=== PATIENT | female | born 1935 ===

== ENCOUNTER 2017-04-10 17:48 | Inpatient (IN) | payer MEDICARE ==
[~2017-04-10] VITALS: Ht 157.5 cm; Wt 50.8 kg
--- NOTE | 2017-04-10 18:00 | NUR ---
PT HIGH RISK OF AWOL. SECURITY AT BEDSIDE.
--- NOTE | 2017-04-10 18:34 | NUR ---
Note ashiaone in [facility] - 04/10/17 at 1838 by ROSSY PER PT TRANSFER PAPERWORK FROM [facility]. PT IS NOT ON MEDICATION AT HOME. Addendum: 04/10/17 at 1838 by MARY ALICESO Amendment ashiaone in [facility] - 04/10/17 at 183 by MARY ALICESO PT ALSO DENEIS ATAKING ANY MEDICATION AT HOME
[2017-04-10] MEDS ORDERED: QUET25TA PO (18:46)
[2017-04-10] MEDS ORDERED: RISP1TAB27 PO (18:46)
[2017-04-10] MEDS ORDERED: QUET50TA PO (18:46)
--- NOTE | 2017-04-10 19:00 | NUR ---
PT TRANSFERED TO [facility]
[2017-04-10 20:02] VITALS: BP 154/92
[2017-04-10] MEDS ORDERED: TEMAZEPAM 7.5 MG CAPSULE PO PRN (20:15)
[2017-04-10] MEDS ORDERED: MAGNESIUM HYDROXIDE 30 ML LIQUID UDC PO PRN (20:15)
[2017-04-10] MEDS ORDERED: ACETAMINOPHEN 325 MG TABLET PO PRN (20:15)
[2017-04-10] MEDS ORDERED: MAG HYDROX/AL HYDROX/SIMETH 30 ML LIQUID UDC PO PRN (20:15)
[2017-04-10] MEDS ORDERED: LORAZEPAM 0.5 MG TABLET PO PRN (20:15)
[2017-04-10] MEDS: DIVALPROEX 125 MG TABLET.DR PO SCH (21:17)
[2017-04-10] MEDS: risperiDONE 0.5 MG TABLET PO SCH (21:17)
--- NOTE | 2017-04-10 22:25 | NUR ---
At approx 1930, admitted 81 year old female to [facility]. with Dx. psychosis. She also has a history of Dementia. She was medically cleared at [facility] where she underwent extensive medical and psychiatric evaluation and was placed on a 5150 hold because of grave disability (On 04/07/17, she presented at their ER stating that her daughter is "stealing from her and poisoning her" and she was eloping from her home without shoes) Her hold starts on 04/10/17 at 1400 and will end on 04/13/17 at 1400. Patient noted anxious and talkative, but cooperative at time of admission. Redirection given and was effective. Patient was also seen and evaluated by the attending Psychiatric and medication were reconciled. Body assessment was done, skin noted dry and intact at this time. Few small brown spots (hyperpigmentation) was noted in upper back. She denies pain or discomfort at this time. patient was advised of unit rules, meals, room, roommates and staff. we will continue to monitor.
--- NOTE | 2017-04-11 06:44 | NUR ---
Patient slept 7.30 hrs through the night. She was noted crying in her bed. She stated, "I want to go home, I miss my home". She was also noted delusional and continue accusing her daughter of taking her new car. Patient was redirected. Patient also took a shower this morning. we will continue to monitor..
[2017-04-11 07:30] VITALS: BP 121/81
[2017-04-11] MEDS: DIVALPROEX 125 MG TABLET.DR PO SCH ×3 (08:32→21:23)
[2017-04-11] MEDS: risperiDONE 0.5 MG TABLET PO SCH ×2 (08:32→21:23)
[2017-04-11 15:32] VITALS: BP 115/70
[2017-04-11 19:59] VITALS: BP 116/68
--- NOTE | 2017-04-12 07:14 | NUR ---
PATIENT SLEPT 5/30HRS THROUGH THE NIGHT. SHE WAS NOTED DELUSIONAL LAST NIGHT. SHE STATED, "I AM LOOKING FOR MY DOG". "WHERE IS MY DOG? HE WAS JUST HERE. PATIENT WAS VERBALLY REDIRECTED.
[2017-04-12 07:30] VITALS: BP 136/80
[2017-04-12] MEDS: DIVALPROEX 125 MG TABLET.DR PO SCH ×3 (08:24→20:10)
[2017-04-12] MEDS: risperiDONE 0.5 MG TABLET PO SCH ×2 (08:24→20:10)
--- NOTE | 2017-04-12 15:37 | NUR ---
Initial discharge instructions: The patient stated that she resides at her home [[address] [place] [address]; ]. She stated that she would like to return to her home upon discharge. The patient stated that she does not want SW to contact he daughter Veronica . SW will speak with patient and MD regarding most appropriate discharge plans. SS will form a safe and proper discharge.
[2017-04-12 16:00] VITALS: BP 114/66
[2017-04-12 19:59] VITALS: BP 110/64
--- NOTE | 2017-04-12 21:21 | NUR ---
PATIENT RECEIVED IN ROOM AWAKE, FORGETFUL AT TIMES. PATIENT CALM AND COOPERATIVE. PATIENT IS ABLE TO MAKE NEEDS KNOWN, PATIENT DENIES PAIN AT THIS TIME, WILL CONTINUE TO MONITOR. PATIENT COMPLAINT WITH MEDICATION. NO AGGRESSIVE OR COMBATIVE BEHAVIOR NOTED, WILL CONTINUE TO MONITOR AND REDIRECT NEEDED.
[2017-04-13 07:30] VITALS: BP 106/56
[2017-04-13 07:57] LABS: BASOPHILS % (AUTO) 0.4 % (0.0-2.0); EOSINOPHILS # (AUTO) 0.2 K/uL (0.0-0.7); EOSINOPHILS % (AUTO) 5.6 % (0.0-7.0); HEMOGLOBIN 12.8 G/DL (12.0-16.0); LYMPHOCYTES # (AUTO) 1.6 K/UL (0.8-4.8); LYMPHOCYTES % (AUTO) 48.6 % (20.5-51.5); MEAN CORPUSCULAR HEMOGLOBIN 28.4 UUG (27.0-31.0); MEAN CORPUSCULAR HGB CONC 32 g/dL (32.0-37.0); MONOCYTES # (AUTO) 0.5 K/UL (0.1-1.30); NEUTROPHILS % (AUTO) 31.4 % (38.5-71.5); PLATELET COUNT (AUTO) 252 K/UL (150-450); RED BLOOD CELL COUNT(AUTO) 4.49 MIL/UL (4.2-5.4); WHITE BLOOD COUNT (AUTO) 3.3 K/UL (4.0-11.2)
[2017-04-13 08:37] LABS: CARBON DIOXIDE 31 mmol/L (21-32); CHLORIDE 106 mmol/L (98-107); CREATININE 1.1 mg/dL (0.6-1.3); GLUCOSE 88 mg/dL (74-106); PHOSPHOROUS 3.6 mg/dL (2.5-4.9); POTASSIUM 4.1 mmol/L (3.5-5.1); UREA NITROGEN, BLOOD 23 mg/dL (7-18)
[2017-04-13] MEDS: DIVALPROEX 125 MG TABLET.DR PO SCH ×3 (08:42→20:26)
[2017-04-13] MEDS: risperiDONE 0.5 MG TABLET PO SCH ×2 (08:42→20:26)
[2017-04-13 16:00] VITALS: BP 141/79
--- NOTE | 2017-04-13 21:33 | NUR ---
PATIENT RECEIVED IN ROOM AWAKE, PATIENT CALM AND COOPERATIVE. PATIENT IS ABLE TO MAKE NEEDS KNOWN, PATIEN DENIES PAIN AT THIS TIME, WILL CONTINUE TO MONITOR. PATIENT COMPLAINT WITH MEDICATION. NO AGGRESSIVE OR COMBATIVE BEHAVIOR NOTED, WILL CONTINUE TO MONITOR AND REDIRECT NEEDED.
[2017-04-14 06:08] VITALS: BP 127/73
[2017-04-14 07:30] VITALS: BP 132/84
[2017-04-14] MEDS: DIVALPROEX 125 MG TABLET.DR PO SCH ×3 (08:57→20:42)
[2017-04-14] MEDS: risperiDONE 0.5 MG TABLET PO SCH ×2 (08:58→20:42)
[2017-04-14 17:08] VITALS: BP 137/86
[2017-04-14 20:19] VITALS: BP 136/83
--- NOTE | 2017-04-15 07:15 | NUR ---
RECEIVED REPORT FROM TANK BUILDER NURSE, PT IS ASLEEP, RESP EVEN/UNLABORED, NO DISTRESS NOTED.
[2017-04-15 07:30] VITALS: BP 144/85
[2017-04-15] MEDS: DIVALPROEX 125 MG TABLET.DR PO SCH ×3 (08:28→21:06)
[2017-04-15] MEDS: risperiDONE 0.5 MG TABLET PO SCH ×2 (08:28→21:06)
--- NOTE | 2017-04-15 09:57 | NUR ---
PT TOOK ALL AM MEDS, IS CALM AND QUIET, EATING BREAKFAST, NO DISTRESS NOTED.
[2017-04-15 15:23] VITALS: BP 121/75
--- NOTE | 2017-04-15 17:55 | NUR ---
PT TOOK PM MED IN RESTING IN BED, NO DISTRESS, CALM AND QUIET, WILL GIVE REPORT TO [facility] SHIFT NURSE.
[2017-04-15 20:04] VITALS: BP 115/64
[2017-04-16 07:19] LABS: CARBON DIOXIDE 30 mmol/L (21-32); CHLORIDE 105 mmol/L (98-107); CREATININE 0.9 mg/dL (0.6-1.3); GLUCOSE 89 mg/dL (74-106); POTASSIUM 4.5 mmol/L (3.5-5.1); UREA NITROGEN, BLOOD 18 mg/dL (7-18)
[2017-04-16 07:30] VITALS: BP 118/82
[2017-04-16] MEDS: risperiDONE 0.5 MG TABLET PO SCH ×2 (09:13→20:44)
[2017-04-16] MEDS: DIVALPROEX 125 MG TABLET.DR PO SCH ×3 (09:13→20:44)
[2017-04-16 15:17] VITALS: BP 116/73
--- NOTE | 2017-04-16 15:32 | NUR ---
glad of phone call from family, appreciative of call
[2017-04-16 20:51] VITALS: BP 118/79
--- NOTE | 2017-04-16 21:15 | NUR ---
PATIENT RECEIVED IN ROOM AWAKE, PATIENT CALM AND COOPERATIVE. PATIENT IS ABLE TO MAKE NEEDS KNOWN, DENIES PAIN AT THIS TIME, WILL CONTINUE TO MONITOR. PATIENT COMPLAINT WITH MEDICATION. NO AGGRESSIVE OR COMBATIVE BEHAVIOR NOTED, WILL CONTINUE TO MONITOR AND REDIRECT NEEDED. PATIENT SHOWERED THIS EVENING.
[2017-04-17 07:30] VITALS: BP 126/82
[2017-04-17] MEDS: risperiDONE 0.5 MG TABLET PO SCH ×2 (09:54→20:43)
[2017-04-17] MEDS: DIVALPROEX 125 MG TABLET.DR PO SCH ×3 (09:54→20:43)
--- NOTE | 2017-04-17 16:30 | NUR ---
receibved patient alert times 2 pleasantly confused and re directable , pt is med compliant and inter acts with select peers . continue to monitor pts safety
[2017-04-17 17:06] VITALS: BP 131/74
[2017-04-17 20:47] VITALS: BP 121/66
--- NOTE | 2017-04-18 05:30 | NUR ---
PATIENT FIRST OBSERVED AWAKE SITTING ON BED. PATIENT APPEARS TO BE CONFUSED. FLAT AFFECT WITH LOW MOOD NOTED ON APPROACH. PLEASANT WHEN INTERACTED WITH STAFF. COMPLIANT WITH MEDICATION HOWEVER RELUCTANT TO TAKE AT FIRST. LAST OBSERVED LYING IN BED. CONTINUE TO MONITOR FOR SAFETY.
[2017-04-18 07:30] VITALS: BP 121/77
--- NOTE | 2017-04-18 08:10 | NUR ---
DC Note: The patient will be discharged today to her daughter Veronica's home [[address] [place] [address]; ] via private car at 1:00 pm. Pt's daughter Veronica is aware and agreeable with the discharge plan and will excelsior picker the patient at 1:00 pm today. Spoke with the patient and she is aware and agreeable with the discharge plan. Per daughter, the patient will have a caregiver everyday from 6:00-10:00 am as well as an evening caregiver. The patient does not have a psychiatrist and surgery nurse. will provide the patient and her daughter with a list of referrals for psychiatry and internal medicine. The list includes psychiatrists Dr. Goldy Clarke , Dr. Azra Whipple , and Dr. Donna Guevara as well as internists Dr. Markell Warner , Dr. Jani Condon , and Dr. Melania Obrien . The patient's daughter will be provided with caregiver resources and support groups. The patient and/or her family may contact the crisis line 17/04 at .
[2017-04-18] MEDS: risperiDONE 0.5 MG TABLET PO SCH (08:48)
[2017-04-18] MEDS: DIVALPROEX 125 MG TABLET.DR PO SCH (08:48)
--- NOTE | 2017-04-18 15:00 | NUR ---
1405 DISCHARGED INSTRUCTIONS GIVEN BOTH THE PATIENT AND THE DAUGHTER REGARDING MEDICATIONS TO CONTINUE AT HOME, BOTH VERBALIZED UNDERSTANDING. VALUABLES SIGNED AND PRESCRIPTION GIVEN 1445 BRING PATIENT TO PARKING AREA AND WENT HOME WITH DAUGHTER STABLE CONDITION, DENIES SUICIDAL THOUGHTS/ DENIES HOMICIDAL IDEATION,. NO HALLUCINATIONS/ NO DELUSIONS.1445 WENT HOME WITH DAUGHTER VIA PRIVATE CAR.
== END 2017-04-18 14:45 | disposition home or self-care (01) | DRG 885 ==
LOC: ER 17:49 → GPS 18:57
PROVIDERS: ADMIT Psychiatry & Neurology Psychiatry; ATTEND Family Medicine
DX: F29 Unspecified psychosis not due to a substance or known physiological condition (principal); E11.65 Type 2 diabetes mellitus with hyperglycemia; F03.91 Unspecified dementia, unspecified severity, with behavioral disturbance; D72.819 Decreased white blood cell count, unspecified; F22 Delusional disorders
CPT/HCPCS: 36415; 83735; 84100; 85025; A4663

== ENCOUNTER 2017-07-26 14:36 | Inpatient (IN) | payer MEDICARE, BC ==
[~2017-07-26] VITALS: Ht 157.5 cm; Wt 50.8 kg
[~2017-07-26 14:36] MED LIST: QUET25TA PO; QUET50TA PO; RISP1TAB27 PO
[2017-07-26] MEDS ORDERED: IBUP-1955 PO (15:27)
--- NOTE | 2017-07-26 15:28 | NUR ---
Unable to reconcile pt's home medications. Pt unable to provide info and there was no information about home medications received from sending facility. Pt arrived with a rx bottle of Ibuprofen which was added to pt's home medication list.
--- NOTE | 2017-07-26 15:40 | NUR ---
Dr Moore medically cleared the pt, and Pt will be admitted to MHU.
[2017-07-26] MEDS ORDERED: LORAZEPAM 1 MG TABLET PO PRN (16:45)
[2017-07-26] MEDS ORDERED: TEMAZEPAM 7.5 MG CAPSULE PO PRN (16:45)
[2017-07-26] MEDS ORDERED: MAGNESIUM HYDROXIDE 30 ML LIQUID UDC PO PRN (16:45)
[2017-07-26] MEDS ORDERED: ACETAMINOPHEN 325 MG TABLET PO PRN (16:45)
[2017-07-26] MEDS ORDERED: MAG HYDROX/AL HYDROX/SIMETH 30 ML LIQUID UDC PO PRN (16:45)
--- NOTE | 2017-07-26 16:55 | NUR ---
SPOKE WITH DR DE LA GARZA, NOTIFIFED OF NEW ADMISSION, BEAU HE WILL RECONCILE MEDS LATER.
--- NOTE | 2017-07-26 17:00 | NUR ---
Admitted an 82 year old /scottish female from ER via [facility] to Mental Health unit on a 5150 hold for Gravely Disabled. Per hold , patient lives at home and unable to care for self and not taking her medications. Patient was brought to [facility] for medical clearance and was transferred to [facility] ER. On face to face interview, patient was calm and cooperative, pleasant on approach, alert/oriented x 2. Body checked done, skin intact , only dry skin. V/s taken as follows: 143/78, HR-77, P-18, T-97.8, 97% on RA, no c/o pain or discomfort noted, c/o feeling a little anxious, denies suicidal/homicidal ideations, denies hearing voices, unable to care for self, poor grooming. Admission assessment done. Patient was oriented to unit, rules and hospital policies. Will continue to monitor patient for safety, needs and behavioral changes.
[2017-07-26] MEDS: risperiDONE 1 MG TABLET PO SCH (20:24)
[2017-07-26 20:27] VITALS: BP 135/86
[2017-07-26] MEDS: QUETIAPINE FUMARATE 25 MG TABLET PO SCH (20:28)
--- NOTE | 2017-07-26 21:44 | NUR ---
Received patient in her room. she is a/o x 2. she is able to make her needs know.she is pleasant and cooperative at this time; she took risperdone 1mg PO QHS; however, she refused Seroquel 50mg PO QHS. she is able to interact with staff
[2017-07-27 07:30] VITALS: BP 129/69
[2017-07-27 07:42] LABS: BASOPHILS % (AUTO) 0.3 % (0.0-2.0); EOSINOPHILS # (AUTO) 0.1 K/uL (0.0-0.7); EOSINOPHILS % (AUTO) 4.8 % (0.0-7.0); HEMATOCRIT 34.5 % (37-47); HEMOGLOBIN 11.4 G/DL (12.0-16.0); LYMPHOCYTES # (AUTO) 1.4 K/UL (0.8-4.8); LYMPHOCYTES % (AUTO) 42.8 % (20.5-51.5); MEAN CORPUSCULAR HEMOGLOBIN 28.9 UUG (27.0-31.0); MEAN CORPUSCULAR HGB CONC 33 g/dL (32.0-37.0); MEAN CORPUSCULAR VOLUME 87.6 FL (81.0-99.0); MONOCYTES # (AUTO) 0.4 K/UL (0.1-1.30); MONOCYTES % (AUTO) 14.4 % (0.0-11.0); NEUTROPHILS # (AUTO) 1.2 K/UL (1.8-8.9); NEUTROPHILS % (AUTO) 37.7 % (38.5-71.5); PLATELET COUNT (AUTO) 225 K/UL (150-450); RED BLOOD CELL COUNT(AUTO) 3.94 MIL/UL (4.2-5.4); WHITE BLOOD COUNT (AUTO) 3.1 K/UL (4.0-11.2)
[2017-07-27 07:55] LABS: THYROID STIMULATING HORMONE 1.104 mIU/mL (0.358-3.740)
[2017-07-27 08:19] LABS: ALANINE AMINOTRANSFERASE 18 U/L (14-59); ALKALINE PHOSPHATASE 124 U/L (50-136); ASPARTATE AMINOTRANSFERASE 23 U/L (15-37); BILIRUBIN,TOTAL 0.3 mg/dL (0.2-1.0); CARBON DIOXIDE 31 mmol/L (21-32); CHLORIDE 108 mmol/L (98-107); CHOLESTEROL 149 mg/dL (<200); GLUCOSE 97 mg/dL (74-106); HDL CHOLESTEROL 64 mg/dL (40-60); MAGNESIUM 1.9 mg/dL (1.8-2.4); PHOSPHOROUS 3.5 mg/dL (2.5-4.9); POTASSIUM 4.1 mmol/L (3.5-5.1); TOTAL PROTEIN, SERUM 7.3 g/dL (6.4-8.2); TRIGLYCERIDES 25 MG/DL (30-150); UREA NITROGEN, BLOOD 12 mg/dL (7-18)
[2017-07-27] MEDS: QUETIAPINE FUMARATE 25 MG TABLET PO SCH ×2 (09:49→21:01)
[2017-07-27 15:00] VITALS: BP 101/56
--- NOTE | 2017-07-27 15:46 | NUR ---
[employer]iodiesel Plant Superintendent: KASSIDY submitted [facility] Mental Health Report to [facility] on 07/27.
[2017-07-27 19:57] LABS: *BILIRUBIN,URIN NEGATIVE (NEGATIVE); *BLOOD, URINE NEGATIVE (NEGATIVE); *CLARITY,URINE CLEAR (CLEAR); *COLOR,URINE YELLOW (YELLOW); *KETONES,URINE NEGATIVE (NEGATIVE); *PROTEIN,URINE NEGATIVE (NEGATIVE); *UROBILINOGEN,URINE 0.2 E.U./dl (NORMAL); LEUKOCYTE ESTERASE ,URINE TRACE (NEGATIVE); NITRITE, URINE NEGATIVE (NEGATIVE); PH,URINE 5.5 (5.0-8.0); UGLUCOSE NEGATIVE (NEGATIVE)
[2017-07-27 20:54] LABS: MUCUS,URINE FEW /LPF (0-FEW); RBC,URINE 0-3 /HPF (0-3); SQUAMOUS EPITHELIAL CELL,UR FEW /HPF (NONE SEEN)
[2017-07-27 20:56] VITALS: BP 119/62
[2017-07-27] MEDS: risperiDONE 1 MG TABLET PO SCH (20:59)
[2017-07-28 07:30] VITALS: BP 134/87
[2017-07-28] MEDS: QUETIAPINE FUMARATE 25 MG TABLET PO SCH ×2 (09:05→20:05)
--- NOTE | 2017-07-28 10:00 | NUR ---
Initial DC Plan: Patient lives at home with her daughter Veronica [[address]. [place] [id number]; [phone]]. SW will follow up with MD, patient, and patient's family to discuss most appropriate discharge plans. SW will form a safe and proper discharge.
[2017-07-28] MEDS: CEPHALEXIN MONOHYDRATE 500 MG CAPSULE PO SCH ×3 (10:50→21:21)
[2017-07-28] MEDS: NICOTINE 14 MG/24HR PATCH TD SCH (14:33)
[2017-07-28 15:33] VITALS: BP 107/61
[2017-07-28] MEDS: risperiDONE 1 MG TABLET PO SCH (20:05)
[2017-07-28 20:09] VITALS: BP 114/75
[2017-07-29] MEDS: CEPHALEXIN MONOHYDRATE 500 MG CAPSULE PO SCH ×2 (06:08→13:21)
--- NOTE | 2017-07-29 06:56 | NUR ---
GPS: REMAIN CONFUSED BUT CALM AND COOPERATIVE WITH MEDICATION AND CARE. SLEPT 08:30 HRS THROUGH THE NIGHT. ASSISTED WITH ADL'S. CONTINUE PLAN OF CARE.
[2017-07-29 07:11] LABS: BASOPHILS # (AUTO) 0.1 K/uL (0.0-8.0); BASOPHILS % (AUTO) 1.4 % (0.0-2.0); EOSINOPHILS # (AUTO) 0.2 K/uL (0.0-0.7); EOSINOPHILS % (AUTO) 5.9 % (0.0-7.0); HEMATOCRIT 38.3 % (37-47); HEMOGLOBIN 12.4 G/DL (12.0-16.0); LYMPHOCYTES # (AUTO) 1.9 K/UL (0.8-4.8); MEAN CORPUSCULAR HEMOGLOBIN 28.4 UUG (27.0-31.0); MEAN CORPUSCULAR HGB CONC 33 g/dL (32.0-37.0); MEAN CORPUSCULAR VOLUME 87.3 FL (81.0-99.0); MONOCYTES # (AUTO) 0.5 K/UL (0.1-1.30); MONOCYTES % (AUTO) 14.8 % (0.0-11.0); NEUTROPHILS % (AUTO) 26.9 % (38.5-71.5); PLATELET COUNT (AUTO) 238 K/UL (150-450); RED BLOOD CELL COUNT(AUTO) 4.39 MIL/UL (4.2-5.4); WHITE BLOOD COUNT (AUTO) 3.7 K/UL (4.0-11.2)
[2017-07-29 07:22] LABS: ALANINE AMINOTRANSFERASE 15 U/L (14-59); ALKALINE PHOSPHATASE 124 U/L (50-136); ASPARTATE AMINOTRANSFERASE 22 U/L (15-37); BILIRUBIN,TOTAL 0.4 mg/dL (0.2-1.0); CARBON DIOXIDE 28 mmol/L (21-32); CHLORIDE 108 mmol/L (98-107); GLUCOSE 99 mg/dL (74-106); MAGNESIUM 1.9 mg/dL (1.8-2.4); PHOSPHOROUS 3.1 mg/dL (2.5-4.9); POTASSIUM 4.2 mmol/L (3.5-5.1); TOTAL PROTEIN, SERUM 7.8 g/dL (6.4-8.2); UREA NITROGEN, BLOOD 16 mg/dL (7-18)
[2017-07-29 07:30] VITALS: BP 134/88
[2017-07-29] MEDS: NICOTINE 14 MG/24HR PATCH TD SCH (08:45)
[2017-07-29] MEDS: QUETIAPINE FUMARATE 25 MG TABLET PO SCH ×2 (08:45→20:18)
[2017-07-29 16:49] VITALS: BP 116/74
[2017-07-29] MEDS: risperiDONE 1 MG TABLET PO SCH (20:18)
[2017-07-29 20:44] VITALS: BP 117/76
--- NOTE | 2017-07-30 06:24 | NUR ---
GPS: REMAIN CONFUSED PATIENT KEEP REMOVING BED SHEET AND THROWING ON THE FLOOR STATED THIS STUFF NOT BELONG TO ME. SLEPT 07:30 HRS THROUGH THE NIGHT.NO AGITATION NOTED CONTINUE PLAN OF CARE.
[2017-07-30 07:30] VITALS: BP 144/82
[2017-07-30] MEDS: QUETIAPINE FUMARATE 25 MG TABLET PO SCH ×2 (08:58→20:21)
[2017-07-30] MEDS: NICOTINE 14 MG/24HR PATCH TD SCH (08:59)
[2017-07-30 16:42] VITALS: BP 119/77
[2017-07-30] MEDS: risperiDONE 1 MG TABLET PO SCH (20:21)
[2017-07-30 20:22] VITALS: BP 143/75
--- NOTE | 2017-07-30 20:49 | NUR ---
PATIENT RECEIVED IN ROOM AWAKE. PATIENT IS CALM AND PLEASANT UPON APPROACH. NO AGGRESSIVE OR COMBATIVE BEHAVIOR NOTED WILL CONTINUE TO MONITOR AND REDIRECT NEEDED. PATIENT IS FORGETFUL WITH MINIMAL PROMPTING. PATIENT COMPLAINT WITH MEDICATION. PATIENT DENIES PAIN AT THIS TIME, WILL CONTINUE TO MONITOR.
[2017-07-31 07:30] VITALS: BP 126/72
[2017-07-31] MEDS: QUETIAPINE FUMARATE 25 MG TABLET PO SCH ×2 (08:17→20:16)
[2017-07-31 17:08] VITALS: BP 124/80
[2017-07-31] MEDS: risperiDONE 1 MG TABLET PO SCH (20:16)
[2017-07-31 20:30] VITALS: BP 111/64
[2017-08-01 07:53] VITALS: BP 126/90
[2017-08-01] MEDS: QUETIAPINE FUMARATE 25 MG TABLET PO SCH ×2 (08:20→20:51)
[2017-08-01 16:45] VITALS: BP 99/50
[2017-08-01 19:59] VITALS: BP 105/64
[2017-08-01] MEDS: risperiDONE 1 MG TABLET PO SCH (20:51)
[2017-08-02 07:30] VITALS: BP 129/89
[2017-08-02] MEDS: QUETIAPINE FUMARATE 25 MG TABLET PO SCH ×2 (08:09→20:00)
[2017-08-02 15:48] VITALS: BP 118/55
[2017-08-02] MEDS: risperiDONE 1 MG TABLET PO SCH (20:00)
[2017-08-02 20:35] VITALS: BP 137/77
--- NOTE | 2017-08-02 22:41 | NUR ---
RECEIVED PT IN DAY ROOM, SHE WAS NOTED HAVING VISUAL HALLUCINATION, SHE STATED THAT, "MY DAUGHTER IS IN MY ROOM, WHERE IS MY DOG, I HAVE MY DOG WITH ME JUST NOW." SHE WAS NOTED CRYING, AND IRRITABLE. VERBAL REDIRECTION WAS PROVIDED. PT WAS COMPLIANT WITH MEDICATION REGIMENT AT THIS TIME.
--- NOTE | 2017-08-03 06:46 | NUR ---
PATIENT SLEPT FOR APPROX 7.30 HRS THROUGH THE NIGHT. SHE HAD A SHOWER THIS MORNING. NO NOTED OR REPORTED DELUSION AND VH/A/H AT THIS TIME.
[2017-08-03 07:30] VITALS: BP 122/83
[2017-08-03] MEDS: QUETIAPINE FUMARATE 25 MG TABLET PO SCH ×2 (08:38→20:08)
[2017-08-03 15:00] VITALS: BP 110/65
--- NOTE | 2017-08-03 16:00 | NUR ---
COMPLIANT WITH MEDICATIONS AND CARE D/C PLANNING FOR TOMORROW PER THE PULMONOLOGY TECHNICIAN.
[2017-08-03] MEDS: risperiDONE 1 MG TABLET PO SCH (20:08)
[2017-08-03 20:38] VITALS: BP 117/73
--- NOTE | 2017-08-04 06:06 | NUR ---
GPS: REMAIN CALM AND COOPERATIVE WITH MEDICATION AND CARE.SLEPT 08:30 HRS THROUGH THE NIGHT.CONTINUE PLAN OF CARE.
--- NOTE | 2017-08-04 06:20 | NUR ---
LILIA NASH CALLED BACK, HE WAS NOTIFY OF NEW ADMISSION AND TO RECONCILE MEDICATION. HE STATED THAT HE WILL RECONCILE HER MEDICATION. PATIENT IN NO ACUTE DISTRESS. WILL CONTINUE TO MONITOR. Addendum: 08/04/17 at 0650 by JOHANNA GARCIA RN WRONG PATIENT
[2017-08-04 07:30] VITALS: BP 140/84
--- NOTE | 2017-08-04 08:10 | NUR ---
DC Note: Patient will be discharged home with family [[address] [place] [address]] via private transportation at 12pm. KASSIDY spoke with patient's daughter Veronica [[phone]] who confirmed she will pick up man patient. Patient will move into [facility] [[address] [address]; [phone]] next week. KASSIDY spoke with Annmarie at [facility] who confirmed patient has been accepted at the facility. Patient will follow up with an play reader and psychiatrist at the facility. [facility] provided referrals for internists including Dr. Carlos Alex , Dr. Librado Galvin, , and Dr. Yoselin Munguia [phone]. Patient was also provided a list of referrals for outpatient psychiatrists including Dr. Whitney [[phone]], Dr. Stoner [[phone]], and Dr. Peña [[phone]].
[2017-08-04] MEDS: QUETIAPINE FUMARATE 25 MG TABLET PO SCH (08:45)
--- NOTE | 2017-08-04 13:45 | NUR ---
PT IS A/O X 2-3. FORGETFUL, BUT REDIRECTABLE, PLEASANT ON APPROACH. NO AGITATION, NO BEHAVIORAL ISSUES. PT IS COMPLIANT, DENIES PAIN OR DISTRESS. PT IS BEING DISCHARGED AND BEING PICKED UP BY HER DAUGHTER TO BE TAKEN TO AN RESIDENTIAL. DISCHARGE INSTRUCTIONS WERE GIVEN TO THE DAUGHTER AND THE PATIENT. WHO VERBALIZES UNDERSTANDING, INCLUDING FILLING THE PRESCRIPTIONS AND FOLLOWING UP WITH EQUIPMENT OPERATOR WAREHOUSE AND PSYCHIATRIST. ALL BELONGING RETURNED, ALL PAPERWORK WAS SIGNED.
== END 2017-08-04 13:45 | disposition home or self-care (01) | DRG 885 ==
LOC: ER 14:42 → GPS 15:58
PROVIDERS: ADMIT Psychiatry & Neurology Psychiatry; ATTEND Family Medicine
DX: F29 Unspecified psychosis not due to a substance or known physiological condition (principal); E44.0 Moderate protein-calorie malnutrition; F03.91 Unspecified dementia, unspecified severity, with behavioral disturbance; I36.1 Nonrheumatic tricuspid (valve) insufficiency; N39.0 Urinary tract infection, site not specified; D64.9 Anemia, unspecified; D72.819 Decreased white blood cell count, unspecified; F17.210 Nicotine dependence, cigarettes, uncomplicated; I25.10 Atherosclerotic heart disease of native coronary artery without angina pectoris; I51.7 Cardiomegaly; I34.0 Nonrheumatic mitral (valve) insufficiency; Z68.20 Body mass index [BMI] 20.0-20.9, adult; R82.6 Abnormal urine levels of substances chiefly nonmedicinal as to source; Z91.19 Patient's noncompliance with other medical treatment and regimen
CPT/HCPCS: 36415; 71010; 83735; 84100; 84443; 85025; 87086; 93005; 93307; A4663